=== PATIENT | male | born 1980 | race Caucasian/White ===

== ENCOUNTER 2017-06-07 14:45 | Emergency (ER) | payer SELFPAY ==
[~2017-06-07] VITALS: Ht 185.4 cm; Wt 95.3 kg
--- NOTE | 2017-06-07 15:25 | NUR ---
PT PRESENTED TO THE ER WITH A C/O ALCOHOL WITHDRAWL AND "NOT ABLE TO FEEL HIS FEET". PT STATED THAT HE HAD A BACK INJURY IN JULY LAST YEAR AND HAS NOT BEEN ABLE TO DO FOLLOW UP BECAUSE HE CAN NOT AFFORD THE INSURANCE.
--- NOTE | 2017-06-07 15:32 | NUR ---
DR. ROSALES IS AT THE BEDSIDE EVALUATING THE PT.
[2017-06-07] MEDS ORDERED: ONDANSETRON HCL/PF 4 MG/2 ML VIAL ONE (15:51)
[2017-06-07] MEDS ORDERED: LORAZEPAM INJ 2 MG/ML VIAL ONE (15:52)
[2017-06-07 15:54] LABS: BASOPHILS # (AUTO) 0.1 /CMM (0.0-0.2); BASOPHILS % (AUTO) 1.8 % (0.0-2.0); EOSINOPHILS # (AUTO) 0.2 /CMM (0.0-0.7); HEMATOCRIT 49 % (39-51); HEMOGLOBIN 17.3 g/dL (13.5-17.5); LYMPHOCYTES # (AUTO) 3.1 /CMM (0.8-4.8); LYMPHOCYTES % (AUTO) 38.4 % (20.0-44.0); MEAN CORPUSCULAR HEMOGLOBIN 35 PG (26.0-33.0); MEAN CORPUSCULAR HGB CONC 35 g/dl (31.0-36.0); MEAN CORPUSCULAR VOLUME 98 fL (80-96); MONOCYTES # (AUTO) 0.6 /CMM (0.1-1.30); MONOCYTES % (AUTO) 7.8 % (2.0-12.0); NEUTROPHILS # (AUTO) 4.2 /CMM (1.8-8.9); PLATELET COUNT (AUTO) 326 /CMM (150-450); RDW COEFFICIENT OF VARIATION 13.6 (11.5-15.0); RED BLOOD CELL COUNT(AUTO) 5.02 MIL/uL (4.5-6.0); WHITE BLOOD COUNT (AUTO) 8.2 K/uL (4.3-11.0)
--- NOTE | 2017-06-07 15:58 | NUR ---
PT REC'D MEDICATION ORDERED.
[2017-06-07] MEDS ORDERED: ONDANSETRON HCL/PF 4 MG/2 ML VIAL IVP ONE (16:00)
[2017-06-07] MEDS ORDERED: DIAZEPAM 5 MG/ML 2 ML DISP.SYRIN IV ONE (16:00)
[2017-06-07] MEDS ORDERED: Thiamine 100 MG in IV D5W 50 ML IV SCH (16:00)
[2017-06-07] MEDS ORDERED: LORAZEPAM INJ 2 MG/ML VIAL IV ONE (16:00)
[2017-06-07] MEDS ORDERED: IV NS 0.9% 1,000 ML BAG IV ONE (16:00)
[2017-06-07 16:03] LABS: CALCIUM, SERUM 8.8 mg/dL (8.5-10.1); CARBON DIOXIDE 28 mmol/L (21-32); CHLORIDE 107 mmol/L (98-107); CREATININE 0.8 mg/dL (0.6-1.3); GLUCOSE 99 mg/dL (74-106); POTASSIUM 3.9 mmol/L (3.5-5.1); SODIUM SERUM 143 mmol/L (136-145); UREA NITROGEN, BLOOD 7 mg/dL (7-18)
--- NOTE | 2017-06-07 16:05 | NUR ---
PT ASKED DESIRAE MATHIS TO GET HIS FATHER. THE DESIRAE MATHIS TOLD ME. I SPOKE TO THE PT AND HE WANTED TO HAVE HIS FATHER CALL HIS WORK TO LET THEM KNOW HE WOULD NOT BE IN. I GOT THE FATHER FOR THE PT AND ESCORTED HIM TO THE PT. I RETURNED APPROX 30 SEC'S LATER AND PT'S FATHER HAD VODKA AND GATORADE THAT HE WAS GIVING TO THE PT. I STOPPED THE FATHER AND NOTIFIED DR. MANJARREZ.
[2017-06-07 16:08] LABS: INR 0.88 (0.85-1.15)
[2017-06-07 16:11] LABS: ACETAMINOPHEN < 2 ug/ml (10-30); ALANINE AMINOTRANSFERASE 88 U/L (12-78); ALBUMIN 3.8 g/dL (3.4-5.0); ALKALINE PHOSPHATASE 97 U/L (46-116); ASPARTATE AMINOTRANSFERASE 75 U/L (15-37); BILIRUBIN,DIRECT 0.1 mg/dL (0.0-0.2); BILIRUBIN,TOTAL 0.2 mg/dL (0.2-1.0); SALICYLATE 4.9 mg/dL (2.8-20.0); TOTAL PROTEIN, SERUM 7.5 g/dL (6.4-8.2); TROPONIN I < 0.017 ng/mL (0.00-0.056)
[2017-06-07 16:12] LABS: SERUM AMMONIA 17 umol/L (11-32)
[2017-06-07 16:16] LABS: ALCOHOL, BLOOD 333 mg/dL (0-0)
--- NOTE | 2017-06-07 16:20 | NUR ---
DR. MANJARREZ IS AT THE BEDSIDE SPEAKING TO THE PT AND HIS FATHER. PT'S VODKA AND GATERADE WAS REMOVED FROM THE ROOM AND THROWN AWAY BY TECH, PER DR. MANJARREZ.
--- NOTE | 2017-06-07 16:45 | NUR ---
PT LEFT FOR CT VIA GURNEY.
--- NOTE | 2017-06-07 16:50 | NUR ---
CALL FROM RADIOLOGY RE: PT WANTING TO SIGN AMA AFTER CT. DR. MANJARREZ NOTIFIED.
--- NOTE | 2017-06-07 17:00 | NUR ---
PT WAS ASKING FOR THE DOCTOR OR THE NURSE. I WENT TO THE BEDSIDE. THE PT WANTED TO KNOW WHY HE WAS IN RESTRIANTS. I EXPLAINED TO THE PT WHY AND THAT HE WAS ALSO DRINKING IN THE ER. PT SAID: "SO, YOU'RE THE ONE THAT RATTED ME OUT". I SAID I TOLD THE DR. DR. MANJARREZ NOTIFIED.
--- NOTE | 2017-06-07 17:05 | NUR ---
PT WAS MOVED TO BED #11.
--- NOTE | 2017-06-07 17:05 | NUR ---
PT RETURNED FROM CT. 4 PT RESTRAINTS ORDERED BY .
--- NOTE | 2017-06-07 17:10 | NUR ---
DR. MANJARREZ IS AT THE BEDSIDE SPEAKING TO THE PT RE: THE RESTRAINTS. PT WANTS TO SIGN OUT AMA. PT'S ALCOHOL LEVEL IS 330. PT IS NOT ABLE TO MAKE THIS DECISION AT THIS TIME.
--- NOTE | 2017-06-07 18:13 | NUR ---
URINE SAMPLE OBTAINED. APPROX 450 ML YELLOW URINE OUTPUT NOTED.
[2017-06-07 18:43] LABS: APPEARANCE,URINE Clear (CLEAR); BILIRUBIN,URINE Negative (NEGATIVE); BLOOD, URINE Negative Ery/uL (NEGATIVE); COLOR,URINE Yellow (YELLOW); KETONES,URINE Negative (NEGATIVE); LEUKOCYTE ESTERASE ,URINE Negative (NEGATIVE); NITRITE, URINE Negative (NEGATIVE); PROTEIN,URINE Negative (NEGATIVE); UGLUCOSE Negative (NEGATIVE); UROBILINOGEN,URINE 0.2 EU/dL (0.2)
--- NOTE | 2017-06-07 19:05 | NUR ---
ROM DONE AND 2 RESTRAINTS REMOVED ONE ARM AND ONE LEG, PER DR. MANJARREZ. PT STATED THAT HE WANTS TO KNOW WHEN HIS ALCOHOL IS ZERO SO HE CAN GO HOME. PT CALLED THE DR. Ute BEATTY".
--- NOTE | 2017-06-07 19:06 | NUR ---
PT WAS CALLING FOR THE NURSE. PT WANTS TO URINATE. PT REC'D A URINAL. PT WAS UPSET AND THREW THE URINAL.
--- NOTE | 2017-06-07 19:15 | NUR ---
PT TRYING TO REMOVE THE RESTRIANT OFF HIS FOOT WITHOUT SUCCESS.
--- NOTE | 2017-06-07 20:10 | NUR ---
PT'S FATHER ARRIVED AND IS SPEAKING TO DR. MANJARREZ RE: TAKING PT TO [facility]. PT STATED THAT HIS FATHER WAS TAKING HIM TO [facility] FOR DETOX
--- NOTE | 2017-06-07 20:17 | NUR ---
IV removed. Catheter intact and site benign. Pressure and 4x4 applied to site. No bleeding noted. PT'S LAST TWO RESTRAINTS REMOVED. PT'S FATHER, DEB, STATED THAT HE WOULD TAKE THE PT TO [facility] FOR DETOX. DR. MANJARREZ OK'D PT'S D/C. Patient discharged to home in stable condition. Written and verbal after care instructions given. Patient verbalizes understanding of instruction. PT LEFT VIA WC.
[2017-06-07 20:26] VITALS: BP 128/89
== END 2017-06-07 20:22 | disposition home or self-care (01) ==
LOC: ER 14:47
DX: R41.82 Altered mental status, unspecified (principal); F10.129 Alcohol abuse with intoxication, unspecified; R26.9 Unspecified abnormalities of gait and mobility; G89.29 Other chronic pain; F17.200 Nicotine dependence, unspecified, uncomplicated
CPT/HCPCS: 36415; 70450; 71045; 80048; 80076; 80305; 80329; 81001; 82140; 83735; 84484; 85025; 85730; 93005; 96365; 96375; 99285; A4606; G0480 ×4; J2060; J2405; J3411; J7060; Z7610; 81000-TC

== ENCOUNTER 2017-10-24 21:28 | Emergency (ER) | payer SELFPAY ==
[~2017-10-24] VITALS: Ht 185.4 cm; Wt 99.8 kg
--- NOTE | 2017-10-24 21:30 | NUR ---
BIBRA FROM HOME FOR ETOH, PER RA PT DRANK 1/2 GALLON OF VODKA. FIELD BS 101. DENIES SI/HI NAD NOTED, VSS, RESP EVEN AND UNLABORED, PT WAS PUT MONITOR, AND O2 VIA NC 4LPM. WAITING FOR MD DE LA ROSA.
--- NOTE | 2017-10-24 23:29 | NUR ---
REPORT GIVEN TO SHASTA CHAUHAN
--- NOTE | 2017-10-25 01:39 | NUR ---
Erin nava in [facility] - 10/25/17 at 0140 by GÓMEZ CALLED PT FAMILY [phone]
--- NOTE | 2017-10-25 01:40 | NUR ---
CALLED PT FATHER [phone], LEFT VM. WAITING FOR CALL BACK,
--- NOTE | 2017-10-25 01:43 | NUR ---
PT AOX3 AND NOTED WITH STEADY GAIT. DR. PINEDA MADE AWARE.
[2017-10-25 02:28] VITALS: BP 114/72
--- NOTE | 2017-10-25 02:28 | NUR ---
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 Patient discharged to home in stable condition. Written and verbal after care instructions given. Patient verbalizes understanding of instruction. pt ambulatory with a steady gait VITAL SIGNS WITHIN NORMAL LIMITS.
== END 2017-10-25 02:29 | disposition home or self-care (01) ==
LOC: ER 21:30
DX: F10.129 Alcohol abuse with intoxication, unspecified (principal); G89.29 Other chronic pain; M54.9 Dorsalgia, unspecified; F17.200 Nicotine dependence, unspecified, uncomplicated; Z60.2 Problems related to living alone
CPT/HCPCS: 99283; A4606; J7030; J7040; Z7610

== ENCOUNTER 2018-01-03 15:20 | Emergency (ER) | payer OTHER ==
[~2018-01-03] VITALS: Ht 177.8 cm; Wt 113.4 kg
[2018-01-03] MEDS ORDERED: methylPREDNISolone SOD SUCC 125 MG/2ML VIAL ONE (15:50)
[2018-01-03] MEDS ORDERED: IPRATROPIUM NEB FS 0.5 MG/2.5 ML AMPUL.NEB ONE (15:52)
[2018-01-03] MEDS ORDERED: ALBUTEROL FS 2.5 MG/3 ML VIAL.NEB ONE (15:52)
--- NOTE | 2018-01-03 15:52 | NUR ---
OPEN CASE WITH ANDREW MADISON
[2018-01-03] MEDS ORDERED: ALBUTEROL FS 2.5 MG/3 ML VIAL.NEB CONTNEB ONE (16:00)
[2018-01-03] MEDS ORDERED: IV NS 0.9% 1,000 ML BAG IV ONE (16:00)
[2018-01-03] MEDS ORDERED: IPRATROPIUM NEB FS 0.5 MG/2.5 ML AMPUL.NEB NEB ONE (16:00)
[2018-01-03] MEDS ORDERED: methylPREDNISolone SOD SUCC 125 MG/2ML VIAL IV ONE (16:00)
[2018-01-03 16:07] LABS: BASOPHILS # (AUTO) 0.2 /CMM (0.0-0.2); BASOPHILS % (AUTO) 2.6 % (0.0-2.0); EOSINOPHILS % (AUTO) 0.9 % (0.0-6.0); HEMATOCRIT 46 % (39-51); HEMOGLOBIN 15.9 g/dL (13.5-17.5); LYMPHOCYTES # (AUTO) 1.7 /CMM (0.8-4.8); LYMPHOCYTES % (AUTO) 26.2 % (20.0-44.0); MEAN CORPUSCULAR HEMOGLOBIN 32 PG (26.0-33.0); MEAN CORPUSCULAR HGB CONC 34 g/dl (31.0-36.0); MEAN CORPUSCULAR VOLUME 93 fL (80-96); MONOCYTES # (AUTO) 0.4 /CMM (0.1-1.30); MONOCYTES % (AUTO) 6.1 % (2.0-12.0); NEUTROPHILS # (AUTO) 4.3 /CMM (1.8-8.9); NEUTROPHILS % (AUTO) 64.2 % (43.0-81.0); PLATELET COUNT (AUTO) 233 /CMM (150-450); RDW COEFFICIENT OF VARIATION 12.6 (11.5-15.0); RED BLOOD CELL COUNT(AUTO) 4.99 MIL/uL (4.5-6.0); WHITE BLOOD COUNT (AUTO) 6.7 K/uL (4.3-11.0)
--- NOTE | 2018-01-03 16:11 | NUR ---
BIB [facility] HOME S/P ETOH AND LIBRIUM USE. PT SEEN & EVAL'D BY JEANA JENNINGS. PT DROWSY, GETTING BREATHING TX. LABS DRAWN & SENT TO LAB. VSS. NO RESP DISTRESS NOTED @ THIS TIME.
[2018-01-03 16:15] LABS: CALCIUM, SERUM 8.6 mg/dL (8.5-10.1); CARBON DIOXIDE 33 mmol/L (21-32); CHLORIDE 108 mmol/L (98-107); CREATININE 0.9 mg/dL (0.6-1.3); GLUCOSE 104 mg/dL (74-106); SODIUM SERUM 142 mmol/L (136-145); UREA NITROGEN, BLOOD 7 mg/dL (7-18)
[2018-01-03 16:21] LABS: ALANINE AMINOTRANSFERASE 54 U/L (12-78); ALBUMIN 3.7 g/dL (3.4-5.0); ALCOHOL, BLOOD 290 mg/dL (0-0); ALKALINE PHOSPHATASE 79 U/L (46-116); ASPARTATE AMINOTRANSFERASE 41 U/L (15-37); BILIRUBIN,DIRECT 0.1 mg/dL (0.0-0.2); BILIRUBIN,TOTAL 0.7 mg/dL (0.2-1.0); TOTAL PROTEIN, SERUM 6.7 g/dL (6.4-8.2)
[2018-01-03 16:23] LABS: ACETAMINOPHEN < 2 ug/ml (10-30); TROPONIN I < 0.017 ng/mL (0.00-0.056)
--- NOTE | 2018-01-03 16:30 | NUR ---
PT GETTING RESTLESS, AGITATED & TRYING TO GET OUT OF GURNEY. PLACED ON 2 PT RESTRAINTS PER ERMD ORDER.
--- NOTE | 2018-01-03 16:39 | NUR ---
CALLED ANDREW WALLER MD TO CALL BACK
[2018-01-03] MEDS ORDERED: HALOPERIDOL LACTATE INJ 5 MG/ML VIAL IV ONE (17:30)
--- NOTE | 2018-01-03 17:30 | NUR ---
Patient is resting comfortably in bed with eyes closed. Easily aroused. VSS. REMOVED RESTRAINTS.
[2018-01-03 17:43] VITALS: BP 119/87
--- NOTE | 2018-01-03 17:54 | NUR ---
PATIENT WILL BE TRANSFERRED TO [facility] ER ACCEPTING IS DR. CEDENO NUMBER FOR REPORT - ALS RIG EN ROUTE WITH ETA OF [phone]
[2018-01-03] MEDS ORDERED: diphenhydrAMINE HCL 50 MG/ML VIAL ONE (18:57)
[2018-01-03] MEDS ORDERED: LORAZEPAM INJ 2 MG/ML VIAL ONE (18:57)
[2018-01-03] MEDS ORDERED: LORAZEPAM INJ 2 MG/ML VIAL IV ONE (19:00)
[2018-01-03] MEDS ORDERED: diphenhydrAMINE HCL 50 MG/ML VIAL IV ONE (19:00)
--- NOTE | 2018-01-03 19:10 | NUR ---
CALLED TO [facility] & SPOKE TO BOWEN MANAGER SHAREPOINT & STS THAT DIE ENGRAVER NOT AVAILABLE & TO CALL BACK IN ABOUT 10-15 MINS.
== END 2018-01-03 19:52 | disposition short-term general hospital (02) ==
LOC: ER 15:22
DX: F10.129 Alcohol abuse with intoxication, unspecified (principal); E87.8 Other disorders of electrolyte and fluid balance, not elsewhere classified; F12.90 Cannabis use, unspecified, uncomplicated; F13.20 Sedative, hypnotic or anxiolytic dependence, uncomplicated; F17.210 Nicotine dependence, cigarettes, uncomplicated; R09.02 Hypoxemia; E86.0 Dehydration; G89.29 Other chronic pain; Z60.2 Problems related to living alone; Y90.8 Blood alcohol level of 240 mg/100 ml or more
CPT/HCPCS: 36415; 71045; 80048; 80076; 80305; 84484; 85025; 93005; 94640 ×2; 96361; 96374; 99285; A4606; G0480 ×2; J1200; J2060; J2930; J7030; Z7610

== ENCOUNTER 2018-06-27 06:44 | Emergency (ER) | payer OTHER ==
[~2018-06-27] VITALS: Ht 185.4 cm; Wt 108.9 kg
--- NOTE | 2018-06-27 06:50 | NUR ---
Pt biba accompanied by his father d/t ETOH Withdrawal. Pt states he drinks ajit and Vodka, last drink was @ 0200 this morning. Pt is A, O/4, noted to be shaking with stuttered speech. Awaiting to be seen and evaluated by Dr. Edward.
[2018-06-27] MEDS ORDERED: Thiamine 100 MG in IV D5W 50 ML IV SCH (07:00)
[2018-06-27] MEDS ORDERED: LORAZEPAM INJ 2 MG/ML VIAL IV ONE ×2 (07:00→08:00)
[2018-06-27] MEDS ORDERED: ONDANSETRON HCL/PF 4 MG/2 ML VIAL IVP ONE (07:00)
[2018-06-27] MEDS ORDERED: IV NS 0.9% 1,000 ML BAG IV ONE (07:00)
[2018-06-27] MEDS ORDERED: LORAZEPAM INJ 2 MG/ML VIAL ONE ×2 (07:25→07:51)
[2018-06-27] MEDS ORDERED: Thiamine 100 MG/ML VIAL ONE (07:26)
[2018-06-27] MEDS ORDERED: ONDANSETRON HCL/PF 4 MG/2 ML VIAL ONE (07:26)
[2018-06-27 07:42] LABS: BASOPHILS # (AUTO) 0.1 /CMM (0.0-0.2); BASOPHILS % (AUTO) 1.1 % (0.0-2.0); EOSINOPHILS % (AUTO) 0.4 % (0.0-6.0); HEMATOCRIT 50 % (39-51); HEMOGLOBIN 17.6 g/dL (13.5-17.5); MEAN CORPUSCULAR HGB CONC 35 g/dl (31.0-36.0); MEAN CORPUSCULAR VOLUME 96 fL (80-96); MONOCYTES # (AUTO) 0.7 /CMM (0.1-1.30); MONOCYTES % (AUTO) 8.3 % (2.0-12.0); NEUTROPHILS % (AUTO) 64.2 % (43.0-81.0); PLATELET COUNT (AUTO) 331 /CMM (150-450); RED BLOOD CELL COUNT(AUTO) 5.22 MIL/uL (4.5-6.0); WHITE BLOOD COUNT (AUTO) 7.8 K/uL (4.3-11.0)
[2018-06-27 07:48] LABS: CREATININE 0.8 mg/dL (0.6-1.3); POTASSIUM 3.7 mmol/L (3.5-5.1)
[2018-06-27 07:53] LABS: ALBUMIN 3.8 g/dL (3.4-5.0); BILIRUBIN,DIRECT 0.1 mg/dL (0.0-0.2); BILIRUBIN,TOTAL 0.3 mg/dL (0.2-1.0); MAGNESIUM 1.9 mg/dL (1.8-2.4); TOTAL PROTEIN, SERUM 6.7 g/dL (6.4-8.2)
--- NOTE | 2018-06-27 09:00 | NUR ---
Patient discharged to home in stable condition. Written and verbal after care instructions given. Patient verbalizes understanding of instruction.
[2018-06-27 09:14] VITALS: BP 132/88
== END 2018-06-27 09:15 | disposition home or self-care (01) ==
LOC: ER 06:47
DX: R41.82 Altered mental status, unspecified (principal); F10.129 Alcohol abuse with intoxication, unspecified; G89.29 Other chronic pain; M54.9 Dorsalgia, unspecified; F17.210 Nicotine dependence, cigarettes, uncomplicated; Y90.8 Blood alcohol level of 240 mg/100 ml or more; Z98.890 Other specified postprocedural states; Z60.2 Problems related to living alone
CPT/HCPCS: 36415; 80048-TC; 80076-TC; 82962-TC; 83690-TC; 83735-TC; 85025-TC; 85730-TC; G0480; J2060; J2405; J3411; J7030; J7060